=== PATIENT | male | born 1970 ===

== ENCOUNTER 2017-06-14 20:01 | Emergency (ER) | payer OTHER ==
[2017-06-14 20:44] VITALS: BP 142/87
--- NOTE | 2017-06-14 20:57 | UC ---
Laceration HPI - HPI Summary HPI Summary: 47 YEAR OLD MALE PRESENTS WITH RIGHT FOOT LACERATION. - History Of Current Complaint Chief Complaint: UCLaceration Stated Complaint: RIGHT FOOT LAC. Time Seen by Provider: 06/14/17 20:57 Hx Obtained From: Patient Laceration Location: Foot Mechanism Of Injury: Sharp Trauma Onset/Duration: Sudden Onset Severity: Moderate Pain Scale Used: 0-10 Numeric - 7 - Allergies/Home Medications Allergies/Adverse Reactions: Allergies Allergy/AdvReac Type Severity Reaction Status Date / Time No Known Allergies Allergy Verified 06/14/17 20:39 PMH/Surg Hx/FS Hx/Imm Hx Previously Healthy: Yes - Surgical History Surgical History: None Surgery Procedure, Year, and Place: shoulder - Family History Known Family History: Positive: None - Social History Alcohol Use: Occasionally Substance Use Type: None Smoking Status (MU): Light Every Day Tobacco Smoker Type: Cigarettes Amount Used/How Often: 1 pack weekly - Immunization History Most Recent Tetanus Shot: within 4 yrs Review of Systems Constitutional: Negative Skin: Other - RIGHT FOOT LACERATION Eyes: Negative ENT: Negative Respiratory: Negative Cardiovascular: Negative Gastrointestinal: Negative Genitourinary: Negative Motor: Negative Neurovascular: Negative Musculoskeletal: Negative Neurological: Negative Psychological: Negative All Other Systems Reviewed And Are Negative: Yes Physical Exam Triage Information Reviewed: Yes Vital Signs: Initial Vital Signs Temp 37.5 C 06/14/17 20:41 Pulse 109 06/14/17 20:41 Resp 16 06/14/17 20:41 BP 142/87 06/14/17 20:41 Vital Signs Reviewed: Yes Eye Exam: Normal ENT Exam: Normal Dental Exam: Normal Neck exam: Normal Neck: Positive: 1 Respiratory Exam: Normal Cardiovascular Exam: Normal Abdominal Exam: Normal Musculoskeletal Exam: Normal Neurological Exam: Normal Psychological Exam: Normal Skin: Positive: Other - RIGHT FOOT LACERATION Laceration Repair - Laceration Repair 1 Laceration Size After Repair: Length (cm) - 5 TO 7 C, Anesthesia Used: 1.0% Lido Cleansing Completed Via Routine Prep: Yes Irrigation With Pressure Irrigation Device: Yes Closure Material: Sutures - ETHILON 4.0 Closure Method: Single Layer Suture Of: Skin Suture Type: Other - ETHILON 4.0 Laceration Course/Dx - Differential Dx - Laceration/Wound Provider Diagnoses: LACEERATION RIGHT FOOT 5 TO 7.0 CM Discharge - Discharge Plan Condition: Stable Disposition: HOME Prescriptions: Cephalexin CAP* [Keflex CAP*] 500 mg PO TID #21 cap Patient Education Materials: Laceration (ED) Forms: *Work Release Referrals: No Primary Care Phys,NOPCP [Primary Care Provider] -
[2017-06-14] MEDS ORDERED: Lidocaine 1% MPF* 2 ML VIAL INJ ONE (21:00)
== END 2017-06-14 22:00 | disposition home or self-care (01) ==
LOC: UCCORT 20:01
DX: S91.311A Laceration without foreign body, right foot, initial encounter (principal); W26.9XXA Contact with unspecified sharp object(s), initial encounter; Y93.9 Activity, unspecified; Y92.9 Unspecified place or not applicable; F17.210 Nicotine dependence, cigarettes, uncomplicated
CPT/HCPCS: 12002; 99202; G0463

== ENCOUNTER 2017-06-16 11:26 | Emergency (ER) | payer OTHER ==
[2017-06-16 13:13] VITALS: BP 143/94
--- NOTE | 2017-06-16 13:15 | UC ---
HPI Wound/Suture Re-check - HPI Summary HPI Summary: right great toe laceration sutured 2 days ago on Keflex, some swelling , painful to put shoe on, on erythema streaking or drainage - History Of Current Complaint Chief Complaint: UCWounds Stated Complaint: WOUND RECHECK Time Seen by Provider: 06/16/17 13:11 Hx Obtained From: Patient Onset/Duration: Sudden Onset, Lasting Days - 2, Still Present Surgical Site: right great toe Severity: Mild - Allergies/Home Medications Allergies/Adverse Reactions: Allergies Allergy/AdvReac Type Severity Reaction Status Date / Time No Known Allergies Allergy Verified 06/16/17 13:07 PMH/Surg Hx/FS Hx/Imm Hx Previously Healthy: Yes - Surgical History Surgical History: None Surgery Procedure, Year, and Place: shoulder - Family History Known Family History: Positive: None - Social History Occupation: Employed Full-time Lives: With Family Alcohol Use: Occasionally Substance Use Type: None Smoking Status (MU): Light Every Day Tobacco Smoker Type: Cigarettes Amount Used/How Often: 1 pack weekly Cessation Counseling: Counseled 3+Min - 10 Min - Immunization History Most Recent Tetanus Shot: within 4 yrs Review of Systems Constitutional: Negative Skin: Other - well approximated wound on right great toe, sutures intact Eyes: Negative ENT: Negative Respiratory: Negative Cardiovascular: Negative Gastrointestinal: Negative Genitourinary: Negative Motor: Negative Neurovascular: Negative Musculoskeletal: Edema - some swelling and tenderness around toe is remaining Neurological: Negative Psychological: Negative Is Patient Immunocompromised?: No All Other Systems Reviewed And Are Negative: Yes Physical Exam Triage Information Reviewed: Yes Appearance: Well-Appearing, No Pain Distress, Well-Nourished Vital Signs Reviewed: Yes Eye Exam: Normal Eyes: Positive: Conjunctiva Clear ENT Exam: Normal ENT: Positive: Normal ENT inspection, Hearing grossly normal, Pharynx normal. Negative: Nasal drainage, Trismus, Muffled voice, Hoarse voice Dental Exam: Normal Neck exam: Normal Neck: Positive: Supple, Nontender Respiratory Exam: Normal Respiratory: Positive: Chest non-tender, No respiratory distress, No accessory muscle use Cardiovascular Exam: Normal Cardiovascular: Positive: RRR, Pulses Normal, Brisk Capillary Refill Musculoskeletal Exam: Normal Musculoskeletal: Positive: Strength Intact, ROM Intact, Edema @ - slight right great toe Neurological Exam: Normal Neurological: Positive: Alert, Muscle Tone Normal Psychological Exam: Normal Skin Exam: Other Skin: Positive: Other - intact sutured laceration right great toe Course/Dx - Course Course Of Treatment: elevat foot, continue antibiodic, use post op shoe return in 10 days for suture removal - Differential Dx - Laceration/Wound Provider Diagnoses: healing wound right great toe Discharge - Discharge Plan Condition: Stable Disposition: HOME Patient Education Materials: Care For Your Stitches (ED), Hypertension (ED) Forms: *Work Release Referrals: [facility] [place] [facility] [place] [facility] [place]] - 2 Weeks Additional Instructions: Sutures out 06/25 or 06/26/17
== END 2017-06-16 13:44 | disposition home or self-care (01) ==
LOC: UCCORT 11:26
DX: S91.111D Laceration without foreign body of right great toe without damage to nail, subsequent encounter (principal); F17.210 Nicotine dependence, cigarettes, uncomplicated; X58.XXXD Exposure to other specified factors, subsequent encounter
CPT/HCPCS: 99211; G0463

== ENCOUNTER 2017-06-26 13:51 | Emergency (ER) | payer OTHER ==
[2017-06-26 14:21] VITALS: BP 160/91
--- NOTE | 2017-06-26 14:32 | UC ---
HPI Wound/Suture Re-check - HPI Summary HPI Summary: 12 days ago had stitches in right great toe-length of incision approx 5 cm-- wound is clean dry and intact appear well healed and approximated--Patient reports he has been off work but but has been walking around the house no longer having pain in toe and is able to wear sneaker - History Of Current Complaint Chief Complaint: UCSkin Stated Complaint: SUTURE REMOVAL Time Seen by Provider: 06/26/17 14:25 Hx Obtained From: Patient Onset/Duration: Sudden Onset, Still Present Severity: Mild - Allergies/Home Medications Allergies/Adverse Reactions: Allergies Allergy/AdvReac Type Severity Reaction Status Date / Time No Known Allergies Allergy Verified 06/26/17 14:18 PMH/Surg Hx/FS Hx/Imm Hx Previously Healthy: Yes - Surgical History Surgical History: Yes Surgery Procedure, Year, and Place: shoulder - Family History Known Family History: Positive: None - Social History Lives: With Family Alcohol Use: Occasionally Substance Use Type: None Smoking Status (MU): Light Every Day Tobacco Smoker Type: Cigarettes Amount Used/How Often: 1 pack weekly Have You Smoked in the Last Year: Yes Cessation Counseling: Patient Advised to Stop - Immunization History Most Recent Tetanus Shot: within 4 yrs Review of Systems Constitutional: Negative Skin: Negative, Other - healing laceration right great toe Eyes: Negative ENT: Negative Respiratory: Negative Cardiovascular: Negative Gastrointestinal: Negative Genitourinary: Negative Motor: Negative Neurovascular: Negative Musculoskeletal: Negative Neurological: Negative Psychological: Negative Is Patient Immunocompromised?: No All Other Systems Reviewed And Are Negative: Yes Physical Exam Triage Information Reviewed: Yes Appearance: Well-Appearing, No Pain Distress, Well-Nourished Vital Signs: Initial Vital Signs Temp 98.2 F 06/26/17 14:18 Pulse 99 06/26/17 14:18 Resp 20 06/26/17 14:18 BP 160/91 06/26/17 14:18 Vital Signs Reviewed: Yes Eye Exam: Normal Eyes: Positive: Conjunctiva Clear ENT Exam: Normal ENT: Positive: Normal ENT inspection, Hearing grossly normal. Negative: Trismus , Muffled voice, Hoarse voice, Dental tenderness, Sinus tenderness Dental Exam: Normal Neck exam: Normal Neck: Positive: Supple, Nontender, No Lymphadenopathy Respiratory Exam: Normal Respiratory: Positive: Chest non-tender, Lungs clear, Normal breath sounds, No respiratory distress, No accessory muscle use Cardiovascular Exam: Normal Cardiovascular: Positive: RRR, No Murmur, Pulses Normal, Brisk Capillary Refill Musculoskeletal Exam: Normal Musculoskeletal: Positive: Strength Intact, ROM Intact, No Edema Neurological Exam: Normal Neurological: Positive: Alert, Muscle Tone Normal Psychological Exam: Normal Skin Exam: Normal Re-Evaluation - Re-Evaluation First Eval Change: Unchanged - Sutures removed and wound immediatly repened-steri strips applied with excellent approximation of wound--LIke return patient to post op shoe and crutches--recheck in 1 week Course/Dx - Course Course Of Treatment: steri strips, post op shoe, crutches, continue to avoid nicotine follow with pcp - Differential Dx - Laceration/Wound Provider Diagnoses: non healing wound right foot, Elevated Blood pressure with out diagnosis of hypertension Discharge - Discharge Plan Condition: Stable Disposition: HOME Patient Education Materials: Wound Healing and Your Diet (ED), Steristrips (ED) Forms: *Work Release Referrals: No Primary Care Phys,NOPCP [Primary Care Provider] - Additional Instructions: Recheck in 1 week or sooner for s/s of infection
== END 2017-06-26 15:10 | disposition home or self-care (01) ==
LOC: UCCORT 13:51
DX: S91.101D Unspecified open wound of right great toe without damage to nail, subsequent encounter (principal); W45.8XXD Other foreign body or object entering through skin, subsequent encounter; R03.0 Elevated blood-pressure reading, without diagnosis of hypertension; F17.210 Nicotine dependence, cigarettes, uncomplicated
CPT/HCPCS: 99212; G0463

== ENCOUNTER 2017-07-03 13:13 | Emergency (ER) | payer OTHER ==
[2017-07-03 17:02] VITALS: BP 156/99
--- NOTE | 2017-07-03 17:21 | UC ---
Laceration HPI - HPI Summary HPI Summary: Here to have a recheck on right great toe wound. Occurred 06/14/17. Suture removal 06/26/17, Wound dehisced and steri-strips applied. Has been off the foot. Wondering if he can return to work just driving. - History Of Current Complaint Chief Complaint: Jose R Stated Complaint: RE CHECK RT FOOT LACERATION Time Seen by Provider: 07/03/17 17:09 Hx Obtained From: Patient Laceration Location: Foot - right great toe. Mechanism Of Injury: Sharp Trauma - broken light Onset/Duration: Sudden Onset, Lasting Weeks - 3 weeks. - Allergies/Home Medications Allergies/Adverse Reactions: Allergies Allergy/AdvReac Type Severity Reaction Status Date / Time No Known Allergies Allergy Verified 07/03/17 17:02 Home Medications: Home Medications NK [No Home Medications Reported] 07/03/17 [History Confirmed 07/03/17] PMH/Surg Hx/FS Hx/Imm Hx Cardiovascular History: Hypertension - Surgical History Surgical History: Yes Surgery Procedure, Year, and Place: shoulder - Family History Known Family History: Positive: Hypertension - Social History Occupation: Employed Full-time Lives: With Family Alcohol Use: Occasionally Substance Use Type: None Smoking Status (MU): Light Every Day Tobacco Smoker Type: Cigarettes Amount Used/How Often: 1 pack weekly Have You Smoked in the Last Year: Yes Cessation Counseling: Patient Advised to Stop - Immunization History Most Recent Tetanus Shot: within 4 yrs Review of Systems Is Patient Immunocompromised?: No All Other Systems Reviewed And Are Negative: Yes Physical Exam Triage Information Reviewed: Yes Appearance: Well-Appearing, No Pain Distress, Well-Nourished Vital Signs: Initial Vital Signs Temp 98.4 F 07/03/17 16:57 Pulse 108 07/03/17 16:57 Resp 16 07/03/17 16:57 BP 156/99 07/03/17 16:57 Vital Signs Reviewed: Yes Respiratory Exam: Normal Cardiovascular Exam: Normal Musculoskeletal Exam: Normal Neurological Exam: Normal Psychological Exam: Normal Skin: Positive: Other - Wound over the dorsum right great toe, intact with steri -strips in place. Laceration Course/Dx - Course/Dx Course Of Treatment: Wound recheck - Differential Dx - Laceration/Wound Differental Diagnoses: Dehiscence, Healing Wound, Suture Removal Provider Diagnoses: Open wound right foot. Wound dehiscence Discharge - Discharge Plan Condition: Stable Disposition: HOME Patient Education Materials: Wound Dehiscence (ED) Forms: *Work Release Referrals: No Primary Care Phys,NOPCP [Primary Care Provider] - Additional Instructions: When the Steri-strips fall off, if the wound is still open just use antibiotic ointment and a large bandaid, changing it twice a day until it is healed. If you don't feel that you can go back to work on the , please return for re -evaluation.
== END 2017-07-03 17:48 | disposition home or self-care (01) ==
LOC: UCCORT 13:13
DX: Z51.89 Encounter for other specified aftercare (principal); Z72.0 Tobacco use
CPT/HCPCS: 99211; G0463